=== PATIENT | female | born 1995 | race Caucasian/White ===

== ENCOUNTER 2021-02-20 09:42 | Inpatient (IN) | payer MEDICAID, OTHER ==
[~2021-02-20] VITALS: Ht 160 cm; Wt 107.5 kg
[2021-02-20] MEDS ORDERED: DEXT 5%/LR + PITOCIN 20UNITS/L 1,000 ML IV SCH (11:15)
[2021-02-20] MEDS ORDERED: NALOXONE HCL 0.4 MG/ML 1ML VIAL IM PRN (11:15)
[2021-02-20] MEDS ORDERED: BUTORPHANOL TARTRATE 2 MG/ML VIAL IV PRN ×2 (11:15→17:15)
[2021-02-20] MEDS ORDERED: METHYLERGONOVINE MALEATE 0.2 MG/ML IM PRN (11:15)
[2021-02-20] MEDS ORDERED: MISOPROSTOL 100MCG TABLET VG SCH (11:15)
[2021-02-20] MEDS ORDERED: LIDOCAINE HCL 1% 20ML VIAL (Pyxis) INJ INFIL SCH (11:15)
[2021-02-20] MEDS ORDERED: CARBOPROST TROMETHAMINE 250 MCG/ML AMPUL IM PRN (11:15)
[2021-02-20] MEDS ORDERED: FAMO20TA8 MT (11:29)
[2021-02-20 13:37] LABS: BASOPHILS % 0.2 % (0.0-2.0); EOSINOPHILS % 0.3 % (0.0-5.0); HEMOGLOBIN. 12.3 g/dL (12.0-16.0); LYMPHOCYTES % 19.6 % (20.0-50.0); MEAN CORPUSCULAR HEMOGLOBIN 27.8 pg (28.0-32.0); MEAN CORPUSCULAR VOLUME 83.6 fL (81.0-99.0); MEAN PLATELET VOLUME 10.3 fl (7.4-10.4); MONOCYTES % 4.2 % (2.0-8.0); NEUTROPHILS % 75.7 % (40.0-76.0); PLATELET 205 x1000/uL (130-400); RED BLOOD CELL COUNT 4.43 mill/uL (4.2-5.4); RED CELL DISTRIBUTION WIDTH 15.4 % (11.6-14.6)
[2021-02-20 13:53] LABS: *AMPHETAMINES SCREEN URINE NEGATIVE (NEGATIVE)
[2021-02-20 13:54] LABS: *BARBITURATES SCREEN URINE NEGATIVE (NEGATIVE); *BENZODIAZEPINES SCREEN URINE NEGATIVE (NEGATIVE); *COCAINE SCREEN URINE NEGATIVE (NEGATIVE); CANNABINOID URINE SCREEN NEGATIVE (NEGATIVE); METHADONE URINE SCREEN NEGATIVE (NEGATIVE); OPIATES URINE SCREEN NEGATIVE (NEGATIVE); PHENCYCLIDINE URINE SCREEN NEGATIVE (NEGATIVE)
[2021-02-20 14:03] LABS: CLARITY URINE CLOUDY (CLEAR); COLOR URINE DARK YELLOW (YELLOW); KETONES URINE TRACE (NEGATIVE); LEUKOCYTE ESTERASE URINE 3+ (NEGATIVE); NITRITE URINE NEGATIVE (NEGATIVE); OCCULT BLOOD URINE NEGATIVE (NEGATIVE); PH URINE 5.5 (4.5-8.0); PROTEIN URINE TRACE (NEGATIVE); SPECIFIC GRAVITY URINE 1.026 (1.005-1.030)
[2021-02-20] MEDS: LACTATED RINGERS 1,000 ML IV SCH ×2 (14:03→14:42)
[2021-02-20] MEDS ORDERED: EPHEDRINE SULFATE 50MG/ML VIAL ONE (14:27)
[2021-02-20] MEDS ORDERED: ONDANSETRON HCL 4MG/2ML INJ ONE (14:27)
[2021-02-20] MEDS ORDERED: CEFAZOLIN SODIUM 1000MG/VIAL ONE (14:27)
[2021-02-20] MEDS ORDERED: FENTANYL CITRATE/PF 50MCG/ML 2ML VIAL ONE (14:27)
[2021-02-20] MEDS ORDERED: DIPHENHYDRAMINE 50MG/ML VIAL ONE (14:27)
[2021-02-20] MEDS ORDERED: OXYTOCIN 10 UNITS/ML 1ML ONE (14:27)
[2021-02-20] MEDS ORDERED: PHENYLEPHRINE HCL 10 MG/ML 1ML (IV VIAL) IV ONE (14:27)
[2021-02-20] MEDS ORDERED: MORPHINE SULFATE/PF 1MG/ML 10ML AMP ONE (14:27)
[2021-02-20] MEDS ORDERED: CITRIC ACID/SODIUM CITRATE SOLN 30ML UDC PO NR (14:30)
[2021-02-20 14:59] LABS: PROTHROMBIN TIME 10.3 sec (9.6-11.0)
[2021-02-20] MEDS ORDERED: METOCLOPRAMIDE HCL 10MG/2ML VIAL ONE (16:50)
[2021-02-20] MEDS ORDERED: KETOROLAC 60MG/2ML VIAL IM ONE (17:03)
[2021-02-20] MEDS ORDERED: NALOXONE HCL 0.4 MG/ML 1ML VIAL IV PRN (17:15)
[2021-02-20] MEDS ORDERED: DIPHENHYDRAMINE 50MG/ML VIAL IV PRN (17:15)
[2021-02-20] MEDS ORDERED: IBUPROFEN 400MG TABLET PO PRN (17:45)
[2021-02-20] MEDS ORDERED: ONDANSETRON HCL 4MG/2ML INJ IV PRN (17:45)
[2021-02-20] MEDS ORDERED: DIPHENHYDRAMINE 25MG CAPSULE PO PRN (17:45)
[2021-02-20] MEDS ORDERED: HEMORRHOIDAL SUPP PR PRN (17:45)
[2021-02-20] MEDS ORDERED: LANOLIN OINT 7GM TUBE TOP PRN (17:45)
[2021-02-20] MEDS ORDERED: HYDROCODONE/ACETAMINOPHEN 5/325MG TABLET PO PRN (17:45)
[2021-02-20] MEDS ORDERED: RHO(D) IMMUNE GLOBULIN 300 MCG/SYR IM PRN (17:45)
[2021-02-20] MEDS ORDERED: BISACODYL 10MG SUPP PR PRN (17:45)
[2021-02-20] MEDS ORDERED: MEPERIDINE HCL/PF 25MG/ML CPJ IV NR (18:00)
[2021-02-20] MEDS: DEXT 5%/LR + PITOCIN 20UNITS/L 1,000 ML IV SCH ×2 (18:28→22:45)
[2021-02-20 20:34] LABS: HEPATITIS B SURFACE ANTIGEN NEGATIVE
[2021-02-20] MEDS ORDERED: DOCUSATE SODIUM 100MG CAPSULE PO SCH (21:00)
[2021-02-20 21:20] VITALS: BP 112/68
[2021-02-20] MEDS ORDERED: NALOXONE HCL 0.4MG/ML VIAL IV PRN (22:15)
[2021-02-20] MEDS: KETOROLAC 30MG/ML VIAL IV SCH (23:22)
[2021-02-21] VITALS: BP 110/65
[2021-02-21 04:00] VITALS: BP 122/77
[2021-02-21] MEDS: KETOROLAC 30MG/ML VIAL IV SCH (05:11)
[2021-02-21 07:30] VITALS: BP 124/77
[2021-02-21 08:17] LABS: BASOPHILS % 0.1 % (0.0-2.0); EOSINOPHILS % 0.1 % (0.0-5.0); HEMATOCRIT. 29.9 % (36.0-48.0); HEMOGLOBIN. 10.4 g/dL (12.0-16.0); MEAN CORPUSCULAR HEMOGLOBIN 28.5 pg (28.0-32.0); MEAN CORPUSCULAR VOLUME 82.1 fL (81.0-99.0); MEAN PLATELET VOLUME 9.9 fl (7.4-10.4); MONOCYTES % 5.6 % (2.0-8.0); NEUTROPHILS % 81.2 % (40.0-76.0); PLATELET 149 x1000/uL (130-400); RED BLOOD CELL COUNT 3.64 mill/uL (4.2-5.4); RED CELL DISTRIBUTION WIDTH 15.3 % (11.6-14.6)
[2021-02-21] MEDS: FERROUS SULFATE 325MG TABLET PO SCH ×2 (08:20→15:13)
[2021-02-21] MEDS: PRENATAL VIT/FE FUMARATE/FA TABLET PO SCH ×2 (09:00→15:14)
[2021-02-21] MEDS: MAGNESIUM/ALUMINUM HYDROXIDE/SIMETHICONE 30ML UDC PO SCH ×2 (09:32→15:13)
[2021-02-21] MEDS: SIMETHICONE 80MG TABLET CHEW PO SCH ×2 (15:15→19:46)
[2021-02-21 16:21] VITALS: BP 118/72
[2021-02-21] MEDS: IBUPROFEN 800MG TABLET PO PRN (19:46)
[2021-02-21 20:36] VITALS: BP 112/64
[2021-02-22 01:56] VITALS: BP 117/71
[2021-02-22] MEDS: IBUPROFEN 800MG TABLET PO PRN ×2 (06:32→13:56)
[2021-02-22 07:30] VITALS: BP 111/61
[2021-02-22] MEDS: MAGNESIUM/ALUMINUM HYDROXIDE/SIMETHICONE 30ML UDC PO SCH ×3 (09:29→17:38)
[2021-02-22] MEDS: SIMETHICONE 80MG TABLET CHEW PO SCH ×3 (09:29→17:39)
[2021-02-22 15:30] VITALS: BP 125/83
[2021-02-22 20:00] VITALS: BP 122/83
[2021-02-23] VITALS (7 sets, daily range): BP systolic 105–142; BP diastolic 68–86
[2021-02-23] MEDS: IBUPROFEN 800MG TABLET PO PRN ×2 (01:11→13:15)
[2021-02-23] MEDS: MAGNESIUM/ALUMINUM HYDROXIDE/SIMETHICONE 30ML UDC PO SCH ×2 (01:11→07:30)
[2021-02-23] MEDS: SIMETHICONE 80MG TABLET CHEW PO SCH ×3 (01:12→13:15)
[2021-02-23] MEDS ORDERED: ONDANSETRON 4MG ODT PO PRN (07:00)
[2021-02-23] MEDS ORDERED: IBUP-2030 MT (09:21)
== END 2021-02-23 15:10 | disposition home or self-care (01) | DRG 540 ==
LOC: 8 EST LDRP 09:42 → OBSVTOIN 09:42 → 8EST 22:04
PROVIDERS: ADMIT Obstetrics & Gynecology; ATTEND Obstetrics & Gynecology
PROC: 10D00Z1 Extraction of Products of Conception, Low, Open Approach (ICD-10-PCS; principal; 2021-02-20)
DX: O36.63X0 Maternal care for excessive fetal growth, third trimester, not applicable or unspecified (principal); D62 Acute posthemorrhagic anemia; O48.0 Post-term pregnancy; Z20.822 Contact with and (suspected) exposure to COVID-19; O99.03 Anemia complicating the puerperium; Z37.0 Single live birth; Z3A.40 40 weeks gestation of pregnancy
CPT/HCPCS: 36415; 76805; 76818; 80305; 81003; 85025; 86592; 86703; 86762; 86850; 86900; 87340; 87426; 88307; J0690; J1200; J1885; J2175; J2274; J2370; J2405; J2590; J2765; J3010; J3490; J7120; Q0162; A4315